=== PATIENT | female | born 1960 | race Caucasian/White ===

== ENCOUNTER 2019-01-06 13:40 | Emergency (ER) | payer OTHER ==
[2019-01-06] MEDS ORDERED: Lactated Ringers 1,000 ML IV ONE (15:12)
--- NOTE | 2019-01-06 15:14 | EDM.PDOC ---
ED HPI GENERAL MEDICAL PROBLEM - General Chief Complaint: ENT Problem Stated Complaint: DENTAL COMPLAINT, HEAVY BLEEDING POST TEETH PULL Time Seen by Provider: 01/06/19 14:11 Source of Information: Reports: Patient, Family () History Limitations: Reports: No Limitations - History of Present Illness INITIAL COMMENTS - FREE TEXT/NARRATIVE: Mrs. Nguyen is a pleasant 58-year-old woman with a past medical history significant for a ruptured cerebral aneurysm, status post coiling in 2010, subsequently on Aggrenox, which the patient held [id number] weeks ago in anticipation of dental extractions for dentures, which was performed this morning at [facility] in [place]. She states that she had gingival bleeding at the time, even before leaving the dentist, and that she started feeling shaky while still at the dentist office. She states that she was discharged home with no prescriptions. She drove herself home in [place], still feeling shaky. She states that her gingival bleeding has since improved considerably, but she is still feeling shaky, which is what brings her to the ED. She states that she did not contact her dentist's office after leaving today. The patient's PCP is Dr. Sukhdev Driscoll. Her Neurologist is Dr. Kalina Villegas. Tooth/Teeth Pain Score (Numeric/FACES): 9 - Related Data Allergies Allergy/AdvReac Type Severity Reaction Status Date / Time lisinopril Allergy Swelling Verified 01/06/19 13:50 morphine Allergy Anaphylactic Verified 01/06/19 13:50 Shock Sulfa (Sulfonamide Allergy Burning Verified 01/06/19 13:50 Antibiotics) Home Meds: Home Meds ALPRAZolam [Xanax] 0.5 mg PO ASDIRECTED 01/06/19 [History] Amitriptyline [Elavil] 10 mg PO BEDTIME 01/06/19 [History] Asa/Dipyrida 1 cap PO BID 01/06/19 [History] Butalb/Acetaminophen/Caffeine [Tzuwuc-Beiitvzm-Gatn 50-325-40] 1 tab PO Q12H PRN 01/06/19 [History] Cyanocobalamin (Vitamin B12) [Vitamin B12] 1,000 mcg IM ASDIRECTED 01/06/19 [ History] Diclofenac Sodium [Voltaren] 75 mg PO TID PRN 01/06/19 [History] Diltiazem [Cardizem CD] 120 mg PO TID 01/06/19 [History] Gabapentin [Neurontin] 1,600 mg PO ASDIRECTED 01/06/19 [History] Gabapentin [Neurontin] 800 mg PO BID 01/06/19 [History] Pravastatin [Pravachol] 40 mg PO DAILY 01/06/19 [History] Ranitidine [Zantac] 150 mg PO BID PRN 01/06/19 [History] Varicella-Zoster GE/AS01B/PF [Shingrix Vial Kit] 1 applic INJECT ASDIRECTED [History] Past Medical History Cardiovascular History: Reports: High Cholesterol, Hypertension (untreated) Genitourinary History: Reports: Urinary Incontinence (stress incontinence) Musculoskeletal History: Reports: Arthritis Neurological History: Reports: Cerebral Aneurysms (ruptured 2010, s/p coiling), MS - Past Surgical History Head Surgeries/Procedures: Reports: Other (See Below) (Cerebral aneurysm coiling 2010) Female Surgical History: Reports: Tubal Ligation Social & Family History - Tobacco Use Smoking Status *Q: Current Every Day Smoker Years of Tobacco use: 42 Packs/Tins Daily: 1.5 Packs/Tins Daily Comment: Down from 2.5 ppd - Caffeine Use Caffeine Use: Reports: Soda - Alcohol Use Alcohol Use History: Yes Alcohol Use Frequency: Rarely - Recreational Drug Use Recreational Drug Use: No - Living Situation & Occupation Living situation: Reports: , with Spouse Occupation: Unemployed ED ROS GENERAL - Review of Systems Review Of Systems: ROS reveals no pertinent complaints other than HPI. ED EXAM, DIZZINESS - Physical Exam Exam: See Below Exam Limited By: No Limitations General Appearance: Alert, WD/WN, No Apparent Distress (no visible shakiness or tremor) Eye Exam: Bilateral Eye: EOMI, Normal Inspection Ears: Normal External Exam, Hearing Grossly Normal Nose: Normal Inspection Throat/Mouth: Normal Lips, Normal Oropharynx, Normal Voice, No Airway Compromise , Other (Upper and lower dentures in place with a small amount of gingival bleeding) Head Exam: Atraumatic, Normocephalic Neck: Normal Inspection, Supple, Non-Tender, Full Range of Motion Respiratory/Chest: No Respiratory Distress, Lungs Clear, Normal Breath Sounds, No Accessory Muscle Use Cardiovascular: Normal Peripheral Pulses, Regular Rate, Rhythm, No Edema, No Gallop, No JVD, No Murmur, No Rub GI/Abdominal: Normal Bowel Sounds, Soft, Non-Tender, No Organomegaly, No Distention, No Abnormal Bruit, No Mass (Female) Exam: Deferred Rectal (Female) Exam: Deferred Neurological: Alert, No Motor/Sensory Deficits, Oriented x 3 Back Exam: Normal Inspection, Full Range of Motion, NT Extremities: Normal Inspection, Normal Range of Motion, No Pedal Edema, Normal Capillary Refill Psychiatric: Normal Affect Skin Exam: Warm, Dry, Intact, Normal Color, No Rash Course - Vital Signs Last Recorded V/S: Last Vital Signs Temp 37.9 C 01/06/19 13:53 Pulse 108 H 01/06/19 13:53 Resp 20 01/06/19 13:53 BP 174/95 H 01/06/19 13:53 Pulse Ox 94 L 01/06/19 13:53 Orthostatic Blood Pressure [ 130/101 Standing] Orthostatic Blood Pressure [ 133/87 Supine] - Orders/Labs/Meds Orders: Active Orders 24 hr Category Date Time Status Orthostatic Vital Signs [RC] STAT Care 01/06/19 15:11 Active Labs: Laboratory Tests 01/06/19 01/06/19 Range/Units 15:20 15:20 WBC 7.46 (3.98-10.04) K/mm3 RBC 4.41 (3.98-5.22) M/mm3 Hgb 14.1 (11.2-15.7) gm/dl Hct 42.3 (34.1-44.9) % MCV 95.9 H (79.4-94.8) fl MCH 32.0 (25.6-32.2) pg MCHC 33.3 (32.2-35.5) g/dl RDW Std Deviation 45.2 (36.4-46.3) fL Plt Count 164 L (182-369) K/mm3 MPV 11.1 (9.4-12.3) fl Neut % (Auto) 81.9 H (34.0-71.1) % Lymph % (Auto) 9.0 L (19.3-51.7) % [place] % (Auto) 8.6 (4.7-12.5) % Eos % (Auto) 0.1 L (0.7-5.8) Baso % (Auto) 0.1 (0.1-1.2) % Neut # (Auto) 6.11 (1.56-6.13) K/mm3 Lymph # (Auto) 0.67 L (1.18-3.74) K/mm3 [place] # (Auto) 0.64 H (0.24-0.36) K/mm3 Eos # (Auto) 0.01 L (0.04-0.36) K/mm3 Baso # (Auto) 0.01 (0.01-0.08) K/mm3 Manual Slide Review Abnormal smear Sodium 140 (136-145) mEq/L Potassium 3.6 (3.5-5.1) mEq/L Chloride 106 (98-107) mEq/L Carbon Dioxide 26 (21-32) mEq/L Anion Gap 11.6 (5-15) BUN 18 (7-18) mg/dL Creatinine 1.0 (0.55-1.02) mg/dL Est Cr Clr Drug Dosing 58.11 mL/min Estimated GFR (MDRD) 57 (>60) mL/min BUN/Creatinine Ratio 18.0 (14-18) Glucose 93 (74-106) mg/dL Calcium 9.1 (8.5-10.1) mg/dL Total Bilirubin 0.4 (0.2-1.0) mg/dL AST 16 (15-37) U/L ALT 13 L (14-59) U/L Alkaline Phosphatase 105 (46-116) U/L Total Protein 7.0 (6.4-8.2) g/dl Albumin 3.5 (3.4-5.0) g/dl Globulin 3.5 gm/dL Albumin/Globulin Ratio 1.0 (1-2) Meds: Medications Discontinued Medications Generic Name Dose Route Start Last Admin Trade Name Freq PRN Reason Stop Dose Admin Lactated Ringer's 1,000 mls @ 999 mls/hr 01/06/19 15:12 01/06/19 15:33 Ringers, Lactated IV 01/06/19 16:12 999 mls/hr .BOLUS ONE Administration - Re-Assessments/Exams Free Text/Narrative Re-Assessment/Exam: 01/06/19 15:12 The patient's gingival bleeding has already improved substantially. She is found to be orthostatic, which is likely the cause of her shakiness and dizziness. I have ordered some blood work, and the patient will be given 1 L of LR, to be followed by a orthostatics. 01/06/19 16:37 Following 1 L of LR, the patient is no longer orthostatic. 01/06/19 17:13 Test results discussed with the patient and her . The patient states that she feels well enough to go home. I am recommending that she stay adequately hydrated. Departure - Departure Time of Disposition: 17:13 Disposition: Home, Self-Care 01 Condition: Good Clinical Impression: Orthostasis - Discharge Information *PRESCRIPTION DRUG MONITORING PROGRAM REVIEWED*: Not Applicable *COPY OF PRESCRIPTION DRUG MONITORING REPORT IN PATIENT LUCIA: Not Applicable Referrals: Sukhdev Driscoll MD [Primary Care Provider] - Kalina Villegas MD [Ordering Only Provider] - Forms: ED Department Discharge Additional Instructions: You were seen in the emergency room for feeling shaky after numerous dental extractions in [place] this morning. Workup in the ER included blood work and positional blood pressure checks. Your blood work was unremarkable; you are not anemic, however, your blood pressure dropped excessively between lying and standing, a condition known as orthostasis. You were given 1 L of IV fluid in the ER, and your blood pressure normalized. Going forward, we recommend that you make sure that she stay adequately hydrated. Gatorade or Powerade are best. Follow-up with your PCP, Dr. Sukhdev Driscoll, and your Neurologist, Dr. Kalina Villegas, as needed. If any other problems, please do not hesitate to return to the ER. - My Orders Last 24 Hours: My Active Orders 01/06/19 15:11 Orthostatic Vital Signs [RC] STAT - Assessment/Plan Last 24 Hours: My Active Orders 01/06/19 15:11 Orthostatic Vital Signs [RC] STAT
== END 2019-01-06 17:19 | disposition home or self-care (01) ==
LOC: JD.ED 13:40
DX: K06.8 Other specified disorders of gingiva and edentulous alveolar ridge (principal); I10 Essential (primary) hypertension; E78.00 Pure hypercholesterolemia, unspecified; F17.210 Nicotine dependence, cigarettes, uncomplicated; Z88.8 Allergy status to other drugs, medicaments and biological substances; Z88.2 Allergy status to sulfonamides; Z88.5 Allergy status to narcotic agent; Z79.899 Other long term (current) drug therapy; Z86.79 Personal history of other diseases of the circulatory system
CPT/HCPCS: 36415; 80053; 85025; 96360; 99283; J7120